=== PATIENT | male | born 1960 | race Caucasian/White ===

== ENCOUNTER 2022-11-21 20:40 | Inpatient (IN) | payer OTHER ==
[~2022-11-21] VITALS: Ht 175.3 cm; Wt 74.8 kg
[2022-11-21] MEDS ORDERED: IV NORMAL SALINE 1000 ML BAG IV ONE ×2 (20:45→21:30)
[2022-11-21] MEDS ORDERED: ACETAMINOPHEN ES 500 MG TABLET PO ONE (20:45)
[2022-11-21] MEDS ORDERED: ONDANSETRON 4 MG/2 ML VIAL IV ONE (20:45)
[2022-11-21] MEDS ORDERED: DIME240C2 PO ×2 (20:52→23:51)
[2022-11-21] MEDS ORDERED: blood pressure pill PO (20:52)
[2022-11-21] MEDS ORDERED: ONDANSETRON 4 MG/2 ML VIAL ONE (20:55)
[2022-11-21] MEDS ORDERED: methylPREDNISolone SOD SUCC 125 MG/2 ML VIAL ONE (20:55)
[2022-11-21] MEDS ORDERED: ACETAMINOPHEN ES 500 MG TABLET ONE (20:55)
[2022-11-21] MEDS ORDERED: LIDOCAINE 2% (GLYDO= UROJET) 10 ML JELLY MM ONE ×2 (20:56→21:00)
[2022-11-21] MEDS ORDERED: methylPREDNISolone SOD SUCC 125 MG/2 ML VIAL IV ONE (21:00)
[2022-11-21 21:03] LABS: BASOPHILS % (AUTO) 0.1 % (0.0-2.0); EOSINOPHILS % (AUTO) 0.4 % (0.0-7.0); HEMATOCRIT 39.8 % (36.7-47.1); HEMOGLOBIN 13.1 g/dL (12.5-16.3); LYMPHOCYTES # (AUTO) 0.7 K/uL (0.8-4.8); LYMPHOCYTES % (AUTO) 6.2 % (20.5-51.5); MEAN CORPUSCULAR HGB CONC 33 g/dL (32.5-36.3); MEAN CORPUSCULAR VOLUME 91.1 fL (73.0-96.2); MONOCYTES # (AUTO) 0.2 K/uL (0.1-1.30); MONOCYTES % (AUTO) 1.6 % (0.0-11.0); NEUTROPHILS # (AUTO) 10.7 K/uL (1.8-8.9); NEUTROPHILS % (AUTO) 91.7 % (38.5-71.5); PLATELET COUNT (AUTO) 278 K/uL (152-348); RED BLOOD CELL COUNT(AUTO) 4.37 MIL/uL (4.06-5.63); RED CELL DISTRIBUTION WIDTH 14.3 % (12.1-16.2); WHITE BLOOD COUNT (AUTO) 11.7 K/uL (3.6-10.2)
[2022-11-21 21:13] LABS: CALCIUM 9.3 mg/dL (8.5-10.1); CARBON DIOXIDE 30 mmol/L (21-32); CHLORIDE 101 mmol/L (98-107); CREATININE 0.9 mg/dL (0.6-1.3); GLUCOSE 104 mg/dL (74-106); POTASSIUM 4.3 mmol/L (3.5-5.1); SODIUM SERUM 140 mmol/L (136-145); UREA NITROGEN, BLOOD 17 mg/dL (7-18)
[2022-11-21 21:21] LABS: DIFFERENTIAL COMMENT 1
[2022-11-21 21:26] LABS: LACTIC ACID 2.6 mmol/L (0.4-2.0)
[2022-11-21 21:28] LABS: ALANINE AMINOTRANSFERASE 39 U/L (16-63); ALBUMIN 4.5 g/dL (3.4-5.0); ALKALINE PHOSPHATASE 62 U/L (50-136); ASPARTATE AMINOTRANSFERASE 25 U/L (15-37); BILIRUBIN,DIRECT 0.1 mg/dL (0.0-0.2); BILIRUBIN,TOTAL 0.5 mg/dL (0.2-1.0); NT-PRO BNP 71 pg/mL (0-125); TOTAL PROTEIN, SERUM 7.2 g/dL (6.4-8.2)
[2022-11-21] MEDS ORDERED: IV NORMAL SALINE 500 ML BAG IV ONE (21:30)
[2022-11-21 21:45] LABS: *BILIRUBIN,URIN NEGATIVE (NEGATIVE); *BLOOD, URINE 3+ (NEGATIVE); *CLARITY,URINE CLEAR (CLEAR); *COLOR,URINE YELLOW (YELLOW); *KETONES,URINE 1+ (NEGATIVE); *PROTEIN,URINE 1+ (NEGATIVE); *UROBILINOGEN,URINE 0.2 E.U./dl (NORMAL); LEUKOCYTE ESTERASE ,URINE TRACE (NEGATIVE); NITRITE, URINE POSITIVE (NEGATIVE); UGLUCOSE NEGATIVE (NEGATIVE)
[2022-11-21 21:49] LABS: BACTERIA,URINE FEW /HPF (NONE SEEN)
[2022-11-21] MEDS ORDERED: CEFTRIAXONE 1 G in IV DEXTROSE 5% 50 ML IV ONE (22:15)
[2022-11-21] MEDS ORDERED: CEFTRIAXONE /D5W 50ML IVPB **ER PYXIS IV ONE (22:24)
[2022-11-21] MEDS ORDERED: LOVA20TA2 PO (23:51)
[2022-11-21] MEDS ORDERED: MODA100T29 PO (23:51)
[2022-11-21] MEDS ORDERED: DILT-4 PO (23:51)
[2022-11-22] VITALS (38 sets, daily range): BP systolic 93–147; BP diastolic 45–81; TEMP 98–99.2; O2SAT 90–97
[2022-11-22] MEDS ORDERED: REMEDY ESSENTIAL ZINC PASTE 113 GM TP PRN (00:15)
[2022-11-22] MEDS ORDERED: ACETAMINOPHEN 325 MG TABLET PO PRN (00:15)
[2022-11-22] MEDS ORDERED: ONDANSETRON 4 MG/2 ML VIAL IV PRN (00:15)
[2022-11-22] MEDS ORDERED: MAGNESIUM HYDROXIDE 30 ML LIQUID UDC PO PRN (00:15)
[2022-11-22] MEDS ORDERED: DILT-32 PO (00:20)
[2022-11-22] MEDS ORDERED: NOREPINEPHRINE BITARTRATE 4 MG/4 ML VIAL IV ONE (00:57)
[2022-11-22] MEDS ORDERED: NOREPINEPHRINE BITARTRATE 8 MG in IV DEXTROSE 5% 250 ML IV ONE (01:00)
[2022-11-22] MEDS ORDERED: LIDOCAINE HCL 1% 20 ML VIAL ONE (01:07)
[2022-11-22] MEDS: NOREPINEPHRINE BITARTRATE 8 MG in IV NORMAL SALINE 242 ML IV PRN ×2 (01:44→08:06)
[2022-11-22] MEDS ORDERED: IV NORMAL SALINE 500 ML BAG IV ONE (02:15)
[2022-11-22] MEDS: CEFTRIAXONE 1 G in IV DEXTROSE 5% 50 ML IV SCH (02:30)
[2022-11-22] MEDS ORDERED: methylPREDNISolone SOD SUCC 125 MG/2 ML VIAL IV SCH (09:00)
[2022-11-22] MEDS: DILTIAZEM HCL CD 120 MG CAP.SR.24H PO SCH (09:00)
[2022-11-22] MEDS: ATORVASTATIN 10 MG TABLET PO SCH (09:32)
[2022-11-22] MEDS: MODAFINIL 100 MG TABLET PO SCH (09:32)
[2022-11-22] MEDS: methylPREDNISolone SOD SUCC 1,000 MG in IV DEXTROSE 5% 250 ML IV SCH (11:01)
[2022-11-22] MEDS ORDERED: ASPI81TA31 PO (21:42)
[2022-11-22] MEDS ORDERED: HYDR25TA4 PO (21:42)
[2022-11-22] MEDS ORDERED: SOTA80TA PO (21:42)
[2022-11-22] MEDS ORDERED: MEMA10TA PO (21:42)
[2022-11-22] MEDS ORDERED: TAMS-3 PO (21:42)
[2022-11-23] VITALS (20 sets, daily range): BP systolic 86–111; BP diastolic 48–64; TEMP 97.8–98.5; O2SAT 93–97
[2022-11-23] MEDS: CEFTRIAXONE 1 G in IV DEXTROSE 5% 50 ML IV SCH (01:01)
[2022-11-23 04:53] LABS: BASOPHILS # (AUTO) 0.1 K/UL (0.0-0.2); BASOPHILS % (AUTO) 0.3 % (0.0-2.0); HEMATOCRIT 34.8 % (36.7-47.1); HEMOGLOBIN 11.6 g/dL (12.5-16.3); LYMPHOCYTES # (AUTO) 0.4 K/uL (0.8-4.8); LYMPHOCYTES % (AUTO) 1.7 % (20.5-51.5); MEAN CORPUSCULAR HEMOGLOBIN 30.3 uug (23.8-33.4); MEAN CORPUSCULAR HGB CONC 33 g/dL (32.5-36.3); MEAN CORPUSCULAR VOLUME 90.8 fL (73.0-96.2); MONOCYTES # (AUTO) 1.6 K/uL (0.1-1.30); MONOCYTES % (AUTO) 6.1 % (0.0-11.0); NEUTROPHILS # (AUTO) 23.8 K/uL (1.8-8.9); NEUTROPHILS % (AUTO) 91.9 % (38.5-71.5); PLATELET COUNT (AUTO) 218 K/uL (152-348); RED BLOOD CELL COUNT(AUTO) 3.83 MIL/uL (4.06-5.63); RED CELL DISTRIBUTION WIDTH 14.2 % (12.1-16.2); WHITE BLOOD COUNT (AUTO) 25.9 K/uL (3.6-10.2)
[2022-11-23 05:08] LABS: DIFFERENTIAL COMMENT 1
[2022-11-23 05:21] LABS: CALCIUM 8.4 mg/dL (8.5-10.1); CREATININE 0.7 mg/dL (0.6-1.3); MAGNESIUM 1.8 mg/dL (1.8-2.4); PHOSPHOROUS 3.1 mg/dL (2.5-4.9); POTASSIUM 3.6 mmol/L (3.5-5.1)
[2022-11-23] MEDS: ATORVASTATIN 10 MG TABLET PO SCH (08:20)
[2022-11-23] MEDS: MODAFINIL 100 MG TABLET PO SCH (08:20)
[2022-11-23] MEDS ORDERED: TECFIDERA 240 MG PO SCH (09:00)
[2022-11-23] MEDS: DILTIAZEM HCL CD 120 MG CAP.SR.24H PO SCH (09:57)
[2022-11-23] MEDS: methylPREDNISolone SOD SUCC 1,000 MG in IV DEXTROSE 5% 250 ML IV SCH (11:08)
[2022-11-23] MEDS: TECFIDERA 240 MG PO SCH (16:18)
[2022-11-23] MEDS: GLUCERNA SHAKE 237 ML CAN PO SCH (16:23)
[2022-11-23] MEDS: IV NS 1000 ML 1,000 ML IV PRN (20:02)
[2022-11-24] MEDS: CEFTRIAXONE 1 G in IV DEXTROSE 5% 50 ML IV SCH (00:11)
[2022-11-24 04:00] VITALS: BP 111/59; TEMP 98.1; O2SAT 98
[2022-11-24 06:25] LABS: BASOPHILS % (AUTO) 0.2 % (0.0-2.0); HEMATOCRIT 33.8 % (36.7-47.1); HEMOGLOBIN 11.2 g/dL (12.5-16.3); LYMPHOCYTES # (AUTO) 0.3 K/uL (0.8-4.8); LYMPHOCYTES % (AUTO) 1.5 % (20.5-51.5); MEAN CORPUSCULAR HEMOGLOBIN 29.9 uug (23.8-33.4); MEAN CORPUSCULAR HGB CONC 33 g/dL (32.5-36.3); MEAN CORPUSCULAR VOLUME 89.8 fL (73.0-96.2); MONOCYTES # (AUTO) 0.9 K/uL (0.1-1.30); NEUTROPHILS # (AUTO) 20.9 K/uL (1.8-8.9); NEUTROPHILS % (AUTO) 94.3 % (38.5-71.5); PLATELET COUNT (AUTO) 208 K/uL (152-348); RED BLOOD CELL COUNT(AUTO) 3.76 MIL/uL (4.06-5.63); RED CELL DISTRIBUTION WIDTH 14.6 % (12.1-16.2); WHITE BLOOD COUNT (AUTO) 22.2 K/uL (3.6-10.2)
[2022-11-24 06:36] LABS: DIFFERENTIAL COMMENT 1
[2022-11-24 06:38] LABS: CALCIUM 8.1 mg/dL (8.5-10.1); CREATININE 0.7 mg/dL (0.6-1.3); POTASSIUM 3.7 mmol/L (3.5-5.1)
[2022-11-24] MEDS: TECFIDERA 240 MG PO SCH ×2 (08:05→16:13)
[2022-11-24] MEDS: ATORVASTATIN 10 MG TABLET PO SCH (08:05)
[2022-11-24] MEDS: MODAFINIL 100 MG TABLET PO SCH (08:06)
[2022-11-24] MEDS: DILTIAZEM HCL CD 120 MG CAP.SR.24H PO SCH (08:09)
[2022-11-24] MEDS: GLUCERNA SHAKE 237 ML CAN PO SCH ×2 (08:09→16:13)
[2022-11-24] MEDS ORDERED: PATIENT MAY USE OWN MED- MD OK PO SCH (09:00)
[2022-11-24 11:30] VITALS: BP 107/55; TEMP 97.8; O2SAT 96
[2022-11-24 15:55] VITALS: BP 100/53; TEMP 97.8; O2SAT 96
[2022-11-24] MEDS: IV NS 1000 ML 1,000 ML IV PRN (18:44)
[2022-11-24 20:00] VITALS: BP 118/70; TEMP 97.7; O2SAT 98
[2022-11-25] VITALS: BP 120/71; TEMP 97.7; O2SAT 96
[2022-11-25] MEDS: CEFTRIAXONE 1 G in IV DEXTROSE 5% 50 ML IV SCH (00:33)
[2022-11-25 04:29] VITALS: BP 127/68; TEMP 97.9; O2SAT 96
[2022-11-25 06:56] LABS: BASOPHILS % (AUTO) 0.1 % (0.0-2.0); HEMOGLOBIN 11.6 g/dL (12.5-16.3); LYMPHOCYTES # (AUTO) 0.9 K/uL (0.8-4.8); LYMPHOCYTES % (AUTO) 4.5 % (20.5-51.5); MEAN CORPUSCULAR HEMOGLOBIN 29.9 uug (23.8-33.4); MEAN CORPUSCULAR HGB CONC 33 g/dL (32.5-36.3); MEAN CORPUSCULAR VOLUME 90.3 fL (73.0-96.2); MONOCYTES # (AUTO) 1.1 K/uL (0.1-1.30); MONOCYTES % (AUTO) 5.5 % (0.0-11.0); NEUTROPHILS # (AUTO) 17.3 K/uL (1.8-8.9); NEUTROPHILS % (AUTO) 89.9 % (38.5-71.5); PLATELET COUNT (AUTO) 236 K/uL (152-348); RED BLOOD CELL COUNT(AUTO) 3.87 MIL/uL (4.06-5.63); RED CELL DISTRIBUTION WIDTH 14.5 % (12.1-16.2); WHITE BLOOD COUNT (AUTO) 19.2 K/uL (3.6-10.2)
[2022-11-25 07:03] LABS: CALCIUM 7.9 mg/dL (8.5-10.1); CARBON DIOXIDE 29 mmol/L (21-32); CHLORIDE 109 mmol/L (98-107); CREATININE 0.6 mg/dL (0.6-1.3); GLUCOSE 102 mg/dL (74-106); SODIUM SERUM 143 mmol/L (136-145); UREA NITROGEN, BLOOD 18 mg/dL (7-18)
[2022-11-25 07:09] LABS: DIFFERENTIAL COMMENT 1
[2022-11-25] MEDS: DILTIAZEM HCL CD 120 MG CAP.SR.24H PO SCH (08:10)
[2022-11-25] MEDS: MIRALAX 17 GM POWD.PACK PO SCH (08:10)
[2022-11-25] MEDS: TECFIDERA 240 MG PO SCH ×2 (08:10→16:23)
[2022-11-25] MEDS: MODAFINIL 100 MG TABLET PO SCH (08:10)
[2022-11-25] MEDS: ATORVASTATIN 10 MG TABLET PO SCH (08:10)
[2022-11-25] MEDS: GLUCERNA SHAKE 237 ML CAN PO SCH ×2 (08:10→16:23)
[2022-11-25 12:00] VITALS: BP 107/56; TEMP 98.4; O2SAT 97
[2022-11-25 16:03] VITALS: BP 98/63; TEMP 98.4; O2SAT 96
[2022-11-25] MEDS: IV NS 1000 ML 1,000 ML IV PRN (16:20)
[2022-11-25 20:00] VITALS: BP 120/72; TEMP 98.2; O2SAT 99
[2022-11-26] VITALS: BP 130/55; TEMP 98.2; O2SAT 100
[2022-11-26] MEDS: CEFTRIAXONE 1 G in IV DEXTROSE 5% 50 ML IV SCH ×2 (00:28→00:30)
[2022-11-26 06:41] LABS: BASOPHILS % (AUTO) 0.1 % (0.0-2.0); EOSINOPHILS # (AUTO) 0.1 K/uL (0.0-0.7); EOSINOPHILS % (AUTO) 1.3 % (0.0-7.0); HEMATOCRIT 37.7 % (36.7-47.1); HEMOGLOBIN 12.6 g/dL (12.5-16.3); LYMPHOCYTES # (AUTO) 1.7 K/uL (0.8-4.8); LYMPHOCYTES % (AUTO) 17.2 % (20.5-51.5); MEAN CORPUSCULAR HEMOGLOBIN 30.1 uug (23.8-33.4); MEAN CORPUSCULAR HGB CONC 33 g/dL (32.5-36.3); MONOCYTES # (AUTO) 0.9 K/uL (0.1-1.30); MONOCYTES % (AUTO) 8.9 % (0.0-11.0); NEUTROPHILS # (AUTO) 7.1 K/uL (1.8-8.9); NEUTROPHILS % (AUTO) 72.5 % (38.5-71.5); PLATELET COUNT (AUTO) 252 K/uL (152-348); RED BLOOD CELL COUNT(AUTO) 4.19 MIL/uL (4.06-5.63); RED CELL DISTRIBUTION WIDTH 14.3 % (12.1-16.2); WHITE BLOOD COUNT (AUTO) 9.8 K/uL (3.6-10.2)
[2022-11-26 06:57] LABS: DIFFERENTIAL COMMENT 1
[2022-11-26] MEDS: GLUCERNA SHAKE 237 ML CAN PO SCH (07:13)
[2022-11-26] MEDS: MIRALAX 17 GM POWD.PACK PO SCH (08:07)
[2022-11-26] MEDS: ATORVASTATIN 10 MG TABLET PO SCH (08:07)
[2022-11-26] MEDS: MODAFINIL 100 MG TABLET PO SCH (08:07)
[2022-11-26] MEDS: DILTIAZEM HCL CD 120 MG CAP.SR.24H PO SCH (08:07)
[2022-11-26] MEDS: TECFIDERA 240 MG PO SCH (08:07)
[2022-11-26] MEDS ORDERED: CALCIUM CARB/VITAMIN D 500MG-200UNITS TABLET PO SCH (09:00)
[2022-11-26] MEDS ORDERED: AMOX500C2 PO (10:53)
[2022-11-26] MEDS ORDERED: CALC-261 PO (10:53)
[2022-11-26 11:48] VITALS: BP 98/57; TEMP 98.7; O2SAT 95
== END 2022-11-26 14:50 | disposition home or self-care (01) | DRG 872 ==
LOC: ER 20:42 → CCU 11-22 00:05 → TELE3 11-23 16:35
PROVIDERS: ADMIT Nurse Practitioner Acute Care; ATTEND Nurse Practitioner Acute Care
DX: A41.50 Gram-negative sepsis, unspecified (principal); N39.0 Urinary tract infection, site not specified; E87.20 Acidosis, unspecified; I48.20 Chronic atrial fibrillation, unspecified; G35 Multiple sclerosis; R27.0 Ataxia, unspecified; Z79.899 Other long term (current) drug therapy; Z79.82 Long term (current) use of aspirin; N40.1 Benign prostatic hyperplasia with lower urinary tract symptoms; R33.8 Other retention of urine; Z20.822 Contact with and (suspected) exposure to COVID-19; T38.0X5A Adverse effect of glucocorticoids and synthetic analogues, initial encounter; Y92.89 Other specified places as the place of occurrence of the external cause; I95.9 Hypotension, unspecified; D72.829 Elevated white blood cell count, unspecified
CPT/HCPCS: 36415; 71045; 83605; 83735; 84100; 84484; 85025; 87040; 93005; A9150; C1758; G0378; J0696; J2405; J2930; J3490; J7040; J7050